=== PATIENT | male | born 1995 | race Caucasian/White ===

== ENCOUNTER → 2021-03-06 | Outpatient (CLI) | payer BC ==
--- NOTE | 2021-03-06 09:23 | REP ---
INDICATION: RT KNEE PAIN. COMPARISON: None. TECHNIQUE: Three views FINDINGS: The compartments are symmetric and well maintained. There is no destructive osseous lesion. There is no evidence of a fracture. IMPRESSION: Within normal limits <Electronically signed by Karlos Interiano > 03/06/21 [id number]
== END ==
LOC: M SOG 08:39
PROVIDERS: ATTEND Orthopaedic Surgery
DX: M25.561 Pain in right knee (principal)

== ENCOUNTER → 2021-03-12 | Outpatient (CLI) | payer BC ==
--- NOTE | 2021-03-12 10:45 | REP ---
INDICATION: PAIN. COMPARISON: None. TECHNIQUE: Sagittal spin-echo proton density, T2 STIR and T2 FLASH. Coronal spin-echo proton density and fat suppressed proton density. Axial fat suppressed proton density. FINDINGS: The anterior and posterior horns of the lateral meniscus are within normal limits. The anterior and posterior horns of the medial meniscus are within normal limits. The anterior and posterior cruciate ligaments are intact. T2 hyper signal is seen throughout the ACL fibers. The quadriceps and patellar tendons are intact. Lateral collateral ligament is intact. There is T2 hyper signal seen within and surrounding the medial collateral ligament which is intact. There is a gap between the medial meniscus and medial collateral ligament with T2 hyper signal seen filling that gap. The medial and lateral patellar retinacula are intact. The articular cartilages are within normal limits. There is no joint effusion or Wellington's cyst. Mild T2 hyper signal is seen within the patellar marrow. IMPRESSION: 1. The medial collateral ligament is sprained with meniscocapsular separation. 2. Mild T2 hyper signal in the patella which suggests a slight contusion. 3. The anterior cruciate ligament is sprained. <Electronically signed by Karlos Interiano > 03/12/21 [id number]
== END ==
LOC: M RAD 09:21
PROVIDERS: ATTEND Orthopaedic Surgery
DX: S83.411A Sprain of medial collateral ligament of right knee, initial encounter (principal); X58.XXXA Exposure to other specified factors, initial encounter; Y92.9 Unspecified place or not applicable

== ENCOUNTER → 2021-04-07 | Outpatient (RCR) | payer BC | LOC: M PT 03-17 12:24 | PROVIDERS: ATTEND Orthopaedic Surgery | DX: M25.561 Pain in right knee (principal) ==

== ENCOUNTER 2021-04-24 14:15 | Outpatient (RCR) | payer BC | END 2021-05-05 | LOC: M PT 14:15 | PROVIDERS: ATTEND Orthopaedic Surgery | DX: M25.561 Pain in right knee (principal) ==

== ENCOUNTER 2022-01-24 23:22 | Emergency (ER) | payer BC ==
[~2022-01-24] VITALS: Ht 182.9 cm; Wt 81.4 kg
[2022-01-24 23:25] VITALS: BP 136/72
== END 2022-01-25 00:36 | disposition left against medical advice (07) ==
LOC: M ED 23:22
DX: Z53.21 Procedure and treatment not carried out due to patient leaving prior to being seen by health care provider (principal)

== ENCOUNTER → 2022-04-22 | Outpatient (CLI) | payer BC | LOC: M SOG 09:40 | PROVIDERS: ATTEND Orthopaedic Surgery | DX: M25.531 Pain in right wrist (principal) ==

== ENCOUNTER → 2022-04-24 | Outpatient (CLI) | payer BC | LOC: M RAD 06:51 | PROVIDERS: ATTEND Orthopaedic Surgery | DX: M25.531 Pain in right wrist (principal); R93.6 Abnormal findings on diagnostic imaging of limbs ==